=== PATIENT | male | born 1935 | race Two or more races ===

== ENCOUNTER 2017-01-22 21:16 | Inpatient (IN) | payer MEDICARE, OTHER ==
[~2017-01-22] VITALS: Ht 185.4 cm; Wt 129.3 kg
[2017-01-22] MEDS ORDERED: IV NORMAL SALINE 1000ML BAG 1,000 ML IV SCH (21:23)
[2017-01-22] MEDS ORDERED: 0.9 % SODIUM CHLORIDE 10 ML DISP.SYRIN. IV PRN (21:30)
[2017-01-22 21:38] LABS: BASO # 0.1 x10^3/uL (0.0-0.2); BASO % 1 % (0-3); EOS % 2 % (0-3); HEMATOCRIT 39.3 % (39.0-53.0); HEMOGLOBIN 13.2 g/dL (13.0-17.5); LYMPH # 1.6 x10^3/uL (1.0-4.8); LYMPH % 15 % (24-48); MEAN CORPUSCULAR HEMOGLOBIN 31 pg (25-35); MEAN CORPUSCULAR HGB CONC 34 g/dL (31-37); MEAN CORPUSCULAR VOLUME 92 fL (79-100); MONO % 8 % (0-9); NEUT % 75 % (31-73); PLATELET COUNT 154 x10^3/uL (140-400); RED CELL DISTRIBUTION WIDTH 14.5 % (11.5-14.5); WHITE BLOOD COUNT 10.8 x10^3/uL (4.0-11.0)
[2017-01-22] MEDS: fentaNYL PF VIAL 100 MCG/2 ML VIAL IV PRN ×2 (21:43→23:01)
--- NOTE | 2017-01-22 21:44 | PHYS DOC ---
Past Medical History Past Medical History: A-Fib, High Cholesterol, Hypertension Past Surgical History: Hip Replacement, Knee Replacement, Other Additional Past Surgical Histo: SHOULDER Smoking: Cigarettes, Less than 1pk/day Alcohol Use: None Drug Use: None Adult General Chief Complaint Chief Complaint: MECHANICAL FALL HPI HPI This is a pleasant 81-year-old male with history of hypertension, chronic atrial fibrillation with a pacemaker in place, and prior left hip replacement presents with a mechanical fall from standing. Patient was in his front yard on his driveway attempting to move a hose when he tripped walking backwards on the lawnmower. EMS was dispatched approximately noon today for evaluation of this patient who insisted that he was able to walk without issue. He emanated into the house remained on the couch all day. He only found this afternoon unable to walk concerning increasing pain in the right hip without radiation down the leg or the back asked EMS to reevaluate him and bring him to the ER. Pain is a 4-10 with rest and immobilization tendon a 10 with any kind of movement. He denies any numbness and tingling, he denies any focal neurologic weakness. Patient has had no bleeding denies any head injury, headache, focal neurologic deficit, or prior injury to this hip. She does pain described as throbbing with no radiation. He said no difficult to urinating denies hematuria nausea vomiting diarrhea and abdominal pain. He did take an oral Lortab prescribed by his primary care physician without improvement of his symptoms. Review of Systems Review of Systems Constitutional: Denies fever or chills [] Eyes: Denies change in visual acuity, redness, or eye pain [] HENT: Denies nasal congestion or sore throat [] Respiratory: Denies cough or shortness of breath [] Cardiovascular: No additional information not addressed in HPI [] GI: Denies abdominal pain, nausea, vomiting, bloody stools or diarrhea [] : Denies dysuria or hematuria [] Musculoskeletal: This patient complains of right hip pain Integument: Denies rash or skin lesions [] Neurologic: Denies headache, focal weakness or sensory changes [] Endocrine: Denies polyuria or polydipsia [] Current Medications Current Medications Current Medications Medications (Trade) Dose Ordered Sig/Elvi Start Time Stop Time Status Last Admin Dose Admin Fentanyl Citrate (Fentanyl 2ml Vial) 50 mcg PRN Q15MIN PRN 01/22/17 21:30 01/23/17 21:29 01/22/17 21:43 50 MCG Sodium Chloride (Normal Saline Flush) 10 ml QSHIFT PRN 01/22/17 21:30 Allergies Allergies Allergies Coded Allergies Type Severity Reaction Last Updated Verified No Known Drug Allergies 01/22/17 No Physical Exam Physical Exam Constitutional: Well developed, well nourished, no acute distress, non-toxic appearance. [] HENT: Normocephalic, atraumatic, bilateral external ears normal, oropharynx moist, no oral exudates, nose normal. [] Eyes: PERRLA, EOMI, conjunctiva normal, no discharge. [] Neck: Normal range of motion, no tenderness, supple, no stridor. [] Cardiovascular: Irregularly irregular rhythm Lungs & Thorax: Bilateral breath sounds clear to auscultation [] Abdomen: Bowel sounds normal, soft, no tenderness, no masses, no pulsatile masses. [] Skin: Warm, dry, no erythema, no rash. [] Back: No tenderness, no CVA tenderness. [] Extremities: Tenderness to palpation over the right lateral hip with no obvious signs of ecchymosis or deformity. Patient has decreased range of motion with significant pain with axial loading along the joint line. The knee ankle thigh and lower leg are without injury. Obvious signs of bleeding abrasions or laceration. Neurologic: Alert and oriented X 3, normal motor function, normal sensory function, no focal deficits noted. [Patient has normal sensation to light touch as well as pain in the lower extremity bilaterally. Psychologic: Affect normal, judgement normal, mood normal. [] Current Patient Data Vital Signs Vital Signs Date Time Temp Pulse Resp B/P (MAP) Pulse Ox O2 Delivery O2 Flow Rate FiO2 01/22/17 21:43 18 98 01/22/17 21:16 98.4 60 123/73 (90) Room Air 98.4 Lab Values Laboratory Tests Test 01/22/17 21:30 01/22/17 21:39 White Blood Count 10.8 x10^3/uL (4.0-11.0) Red Blood Count 4.30 x10^6/uL (4.30-5.70) Hemoglobin 13.2 g/dL (13.0-17.5) Hematocrit 39.3 % (39.0-53.0) Mean Corpuscular Volume 92 fL (79-100) Mean Corpuscular Hemoglobin 31 pg (25-35) Mean Corpuscular Hemoglobin Concent 34 g/dL (31-37) Red Cell Distribution Width 14.5 % (11.5-14.5) Platelet Count 154 x10^3/uL (140-400) Neutrophils (%) (Auto) 75 % (31-73) H Lymphocytes (%) (Auto) 15 % (24-48) L Monocytes (%) (Auto) 8 % (0-9) Eosinophils (%) (Auto) 2 % (0-3) Basophils (%) (Auto) 1 % (0-3) Neutrophils # (Auto) 8.1 x10^3uL (1.8-7.7) H Lymphocytes # (Auto) 1.6 x10^3/uL (1.0-4.8) Monocytes # (Auto) 0.8 x10^3/uL (0.0-1.1) Eosinophils # (Auto) 0.2 x10^3/uL (0.0-0.7) Basophils # (Auto) 0.1 x10^3/uL (0.0-0.2) Prothrombin Time 25.5 SEC (11.7-14.0) H Prothrombin Time INR 2.5 (0.8-1.1) H PTT 38 SEC (24-38) Sodium Level 142 mmol/L (136-145) Potassium Level 3.7 mmol/L (3.5-5.1) Chloride Level 102 mmol/L (98-107) Carbon Dioxide Level 33 mmol/L (21-32) H Anion Gap 7 (6-14) Blood Urea Nitrogen 35 mg/dL (8-26) H Creatinine 1.7 mg/dL (0.7-1.3) H Estimated GFR (Cockcroft-Gault) 38.9 BUN/Creatinine Ratio 21 (6-20) H Glucose Level 116 mg/dL (70-99) H Calcium Level 8.5 mg/dL (8.5-10.1) Total Bilirubin 0.4 mg/dL (0.2-1.0) Aspartate Amino Transferase (AST) 17 U/L (15-37) Alanine Aminotransferase (ALT) 29 U/L (16-63) Alkaline Phosphatase 80 U/L (46-116) Total Protein 7.1 g/dL (6.4-8.2) Albumin 3.2 g/dL (3.4-5.0) L Albumin/Globulin Ratio 0.8 (1.0-1.7) L POC Troponin I 0.04 ng/ml (<0.08) Laboratory Tests 01/22/17 21:30 Laboratory Tests 01/22/17 21:30 EKG EKG [] Patient is pleasant 81-year-old male EKG timed 212301/22/2017 demonstrates paced rhythm with atrial fibrillation QRS is wide based on past rhythm regular and capturing Radiology/Procedures Radiology/Procedures IMAGING REPORT Signed PATIENT: RENATA WALTERS ACCOUNT: [id number] : 1935 LOCATION: ER AGE: 81 SEX: M EXAM STATUS: REG ER ORD. PHYSICIAN: CARMELO WATSON MD REASON: fall from standing on coumadin PROCEDURE: CT HEAD WO CONTRAST PROCEDURE CT head without contrast. HISTORY Fall, on Coumadin TECHNIQUE Noncontrast CT imaging was performed of the head. Exposure: One or more of the following individualized dose reduction techniques were utilized for this exam: 1. Automated exposure control. 2. Adjustment of the mA and/or kV according to patient size. 3. Use of iterative reconstruction technique. COMPARISON None FINDINGS There is mild generalized supratentorial atrophy. No acute intracranial hemorrhage is identified. There is no intra-axial mass effect or midline shift. Key-white differentiation of the major vascular territories is maintained. No acute calvarial abnormality is identified. Visualized paranasal sinuses are mostly aerated, minimal ethmoid air cell mucosal thickening. Mastoid air cells are aerated. IMPRESSION 1. No acute intracranial hemorrhage is identified. 2. There is mild generalized supratentorial atrophy. Electronically signed by: Trevin Gallego MD (January 22, 2017 22:08:44) DICTATED and SIGNED BY: RADHA GALLEGO MD DATE: 01/22/172207 CC: CARMELO WATSON MD; IGOR WINCHESTER MD ~ [] Course & Med Decision Making Course & Med Decision Making Pertinent Labs and Imaging studies reviewed. (See chart for details) Patient's hip x-ray time 2151 date 01/22/2017 demonstrates prosthetic hip noted on the right with no occult fractures. Pelvic was at an normal limits. Pubic rami intact no evidence of the distal femur is noted on the x-rays.] Patient's CT of his head is unremarkable as noted in the above note. CT results were reviewed by me as well as laboratory work, INR was 2.5 patient is mildly dehydrated with elevated creatinine of and as well as a increased hyperglycemia. Patient unable to walk secondary to pain although there is no obvious signs of trauma or hematoma in the soft tissues that may be contributing to her symptoms. Spoke at length with patient need for possible CT of his lumbar spine to ensure that no occult fractures noted. Patient be admitted to the hospital to his primary care physician Dr. Igor Winchester for pain control given repeated needs for multiple doses of narcotics. His hematocrit was stable come: Okay with this plan as well as internal medicine physician Impression: Intractable hip pain, contusion and hematoma Disposition: The hospital for 24-48 hour evaluation pain control and disposition. Dragon Disclaimer Dragon Disclaimer This electronic medical record was generated, in whole or in part, using a voice recognition dictation system. Departure Departure Impression: Primary Impression: Hip abrasion Additional Impressions: Contusion of hip Intractable pain Disposition: ADMITTED INPATIENT Admitting Physician: Igor Winchester Condition: GUARDED Problem Qualifiers CARMELO WATSON MD January 22, 2017 21:44
[2017-01-22 21:47] LABS: CALCIUM 8.5 mg/dL (8.5-10.1); CREATININE 1.7 mg/dL (0.7-1.3); GFR 38.9; POTASSIUM 3.7 mmol/L (3.5-5.1)
[2017-01-22 21:49] LABS: INR 2.5 (0.8-1.1); PROTHROMBIN TIME PATIENT 25.5 SEC (11.7-14.0)
[2017-01-22 21:53] LABS: ALBUMIN 3.2 g/dL (3.4-5.0); ALBUMIN/GLOBULIN RATIO 0.8 (1.0-1.7); TOTAL BILIRUBIN 0.4 mg/dL (0.2-1.0); TOTAL PROTEIN 7.1 g/dL (6.4-8.2)
--- NOTE | 2017-01-22 22:10 | RAD ---
PROCEDURE CT head without contrast. HISTORY Fall, on Coumadin TECHNIQUE Noncontrast CT imaging was performed of the head. Exposure: One or more of the following individualized dose reduction techniques were utilized for this exam: 1. Automated exposure control. 2. Adjustment of the mA and/or kV according to patient size. 3. Use of iterative reconstruction technique. COMPARISON None FINDINGS There is mild generalized supratentorial atrophy. No acute intracranial hemorrhage is identified. There is no intra-axial mass effect or midline shift. Key-white differentiation of the major vascular territories is maintained. No acute calvarial abnormality is identified. Visualized paranasal sinuses are mostly aerated, minimal ethmoid air cell mucosal thickening. Mastoid air cells are aerated. IMPRESSION 1. No acute intracranial hemorrhage is identified. 2. There is mild generalized supratentorial atrophy. Electronically signed by: Trevin Kevin MD (January 22, 2017 22:08:44)
[2017-01-22 22:26] LABS: BILIRUBIN,URINE NEGATIVE (NEG); GLUCOSE,URINE NEGATIVE (NEG); NITRITE,URINE NEGATIVE (NEG); PH,URINE 5.5; PROTEIN,URINE NEGATIVE (NEG-TRACE); UROBILINOGEN,URINE 0.2 mg/dL (0.2 mg/dL)
[2017-01-22 22:32] LABS: BACTERIA,URINE FEW /HPF (0-FEW); SQUAMOUS EPITHELIAL CELL,UR FEW /LPF
[2017-01-22] MEDS ORDERED: ACETAMINOPHEN 325 MG TABLET. PO PRN (22:45)
[2017-01-22] MEDS ORDERED: ONDANSETRON PF 4 MG/2 ML VIAL. IV PRN (22:45)
--- NOTE | 2017-01-22 23:02 | RAD ---
PROCEDURE CT lumbar spine without contrast. HISTORY Fall, low back pain TECHNIQUE Noncontrast CT imaging was performed of the lumbar spine. Exposure: One or more of the following individualized dose reduction techniques were utilized for this exam: 1. Automated exposure control. 2. Adjustment of the mA and/or kV according to patient size. 3. Use of iterative reconstruction technique. COMPARISON None FINDINGS Lumbar vertebral body stature is overall adequate. There is pseudoarticulation on the right at L5 and S1. No lumbar spine fracture is identified. There is multilevel moderate to severe degenerative disc disease other than mild degenerative disc disease at L5-S1. There is multilevel lumbar facet degenerative change. There is likely overall moderate spinal stenosis at L2-3, other lateral recess stenosis L1-L2, and minimally at L3-4 and likely at least mild left greater than right lateral recess stenosis at L4-5. There is multilevel lumbar neural foramina compromise including more significant narrowing bilaterally at L4-5 and on the right at L1-2, to lesser degree at other levels other than relative sparing L5-S1. There is mild lumbar levoscoliosis. IMPRESSION 1. No acute lumbar spine fracture is identified. 2. There is multilevel lumbar degenerative disc disease and spondylosis as well as facet degenerative change, multilevel variable lateral recess stenosis and neural foramina compromise. Electronically signed by: Trevin Kevin MD (January 22, 2017 23:00:36)
[2017-01-23] VITALS (7 sets, daily range): BP systolic 92–120; BP diastolic 52–74
--- NOTE | 2017-01-23 | ACF ---
Admission Forms Criteria PAIN MANAGEMENT GRG Clinical Indications for Admission to Inpatient Care (Place 'X' for any and all applicable criteria): Hospital admission is needed for appropriate care of the patient because of 1 or more of the following are present (1)(2)(3)(4)(5): [X ]I. Severe pain requiring acute inpatient management as indicated by 1 or more of the following (2)(5)(10): [X ]a) Continuous or frequent (eg, every 2 to 4 hours) parenteral analgesics required [A] [ ]b) Necessity (ie, alternative approaches not effective) for analgesic regimen that can only be performed or initiated in inpatient setting [X ]II. Pain causing debilitation to the point of inability to function or be supported at any other level of care [ ]III. Severe side effects from pain medications as indicated by ANY ONE of the following (12)(13)(14)(15): [ ]a) Uncontrollable seizures [ ]b) Cardiac arrhythmias of immediate concern [ ]c) Dehydration that is severe or persistent [ ]d) Vomiting that is severe or persistent [ ]e) Altered mental status that is severe or persistent [ ]f) Obstipation with inadequate GI function to maintain nutrition The original [employer] content created by [employer] has been revised. The portions of the content which have been revised are identified through the use of italic text or in bold, and [facility] has neither reviewed nor approved the modified material. All other unmodified content is copyright [employer]. Please see references footnoted in the original [employer] edition 2016 Admission Criteria Met?: Yes EROS HDZ January 23, 2017 00:00
[2017-01-23] MEDS: fentaNYL PF VIAL 100 MCG/2 ML VIAL IV PRN ×3 (01:11→08:26)
[2017-01-23] MEDS ORDERED: TAMS0.4C2 PO (02:23)
[2017-01-23] MEDS ORDERED: WARF2TAB7 PO (02:23)
[2017-01-23] MEDS ORDERED: METO100T11 PO (02:23)
[2017-01-23] MEDS ORDERED: HYDR-2672 PO (02:23)
[2017-01-23] MEDS ORDERED: FURO20TA3 PO (02:23)
[2017-01-23] MEDS ORDERED: POTA20TA82 PO (02:23)
--- NOTE | 2017-01-23 06:21 | EKG ---
[facility] [address] [place] [address] Test Date: 2017-01-22 Test Time: 21:24:08 Pat Name: RENATA MALONE Department: Room: Gender: M Sr. Director: : 1935 Requested By: CARMELO WATSON Order Number: [id number] Reading MD: Measurements Intervals Duff Rate: 60 P: HI: QRS: 127 QRSD: 38 T: -86 QT: 470 QTc: 475 Interpretive Statements ATRIAL FIBRILLATION INDETERMINATE AXIS R-S TRANSITION ZONE IN V LEADS DISPLACED TO THE LEFT LOW LIMB LEAD VOLTAGE QRS(T) CONTOUR ABNORMALITY CONSIDER ANTEROSEPTAL MYOCARDIAL DAMAGE CONSIDER INFERIOR INFARCT ST & T ABNORMALITY, CONSIDER ANTERIOR ISCHEMIA OR LEFT VENTRICULAR STRAIN T ABNORMALITY IN LATERAL LEADS RI6.01 Unconfirmed report No previous ECG available for comparison
--- NOTE | 2017-01-23 07:44 | RAD ---
Pelvis with right hip, 01/22/2017: History: Fall A right total hip prosthesis is in place in satisfactory position. No fracture or dislocation is evident. Degenerative changes are noted in the lower lumbar spine. There is a moderate amount stool in the colon. IMPRESSION: 1. A right total hip prosthesis is in place in satisfactory position. 2. No acute bony abnormality is detected.
--- NOTE | 2017-01-23 07:46 | RAD ---
AP chest, 01/22/2017: History: Fall, anterior chest wall pain A left-sided transvenous pacemaker is in place with 3 leads extending into the heart. The heart is mildly enlarged. The pulmonary vascularity is normal. The depth of inspiration is suboptimal. No pulmonary infiltrate is seen. There is no evidence of pleural fluid or pneumothorax. Degenerative changes are evident in the spine and at the right shoulder. A left shoulder prosthesis is in place. IMPRESSION: 1. Mild cardiomegaly. 2. No acute abnormality is detected.
[2017-01-23] MEDS ORDERED: HYDROcodone/APAP 10/325 1 TAB TABLET PO PRN (09:00)
[2017-01-23] MEDS: METOPROLOL SUCC 24HR ER 100 MG TAB.ER.24H. PO SCH (09:00)
[2017-01-23] MEDS: FUROSEMIDE 20 MG TABLET PO SCH (09:00)
--- NOTE | 2017-01-23 09:09 | PDOC ---
Provider Note Provider Note [id number] IGOR QUIROZ MD January 23, 2017 09:09
[2017-01-23] MEDS: TAMSULOSIN 0.4 MG CAP.ER.24H. PO SCH (10:17)
--- NOTE | 2017-01-23 11:45 | HP ---
ADMIT DATE: CHIEF COMPLAINT: Fall. HISTORY OF PRESENT ILLNESS: An 81-year-old white male with history of atrial fibrillation and chronic ____ watering belle, dripped over the horse and fell on his right side and buttock. He was unable to walk over the last next several hours and came into the ER. CT scan of the head, hip x-ray, lumbar spine CT and chest x-ray were all clear and no bony injuries are seen and labs were normal. He is still having a fair amount of right posterior gluteal pain at this point. PAST MEDICAL HISTORY: Anticoagulated ____ [facility] for his atrial fibrillation. MEDICATIONS: He takes other meds are listed per his moderate cardiomyopathy, right hip replacement was in place. ALLERGIES: No allergies are known. SOCIAL HISTORY: He is , lives with family. Nonsmoker, nondrinker. FAMILY HISTORY: Unremarkable. REVIEW OF SYSTEMS: Unremarkable. OBJECTIVE: ENT: All within normal limits. NECK: No masses, nodes or bruits. LUNGS: Clear. CARDIOVASCULAR: Regular rate. No irregular beat or murmur. ABDOMEN: Soft, obese, benign, and nontender. BACK: Nontender. EXTREMITIES: He is tender in the right gluteal and lateral hip area. No bruising, redness or skin breakdown were seen, good pedal and radial pulses bilaterally. NEUROLOGIC: Physiologic, he is able to sit up slowly unable to stand slowly. No focal deficits are noted. Mental status is intact. LABORATORY STUDIES: Showed an INR of 2.5, otherwise unremarkable. ASSESSMENT: Fall and right hip and buttock pain; some soft tissue injury. PLAN: PT and Pharmacy Service Associate, continue same medications. IGOR QUIROZ MD DR: ROULA/emma JOB#: [id number] / [id number]
[2017-01-23] MEDS: HYDROcodone/APAP 10/325 1 TAB TABLET PO PRN ×2 (12:44→20:11)
[2017-01-23] MEDS ORDERED: WARFARIN 2 MG TABLET. PO SCH (16:00)
[2017-01-23] MEDS ORDERED: fentaNYL PF VIAL 100 MCG/2 ML VIAL IV PRN (21:45)
[2017-01-23] MEDS: POLYETHYLENE GLYCOL 3350 17 GM PACKET. PO SCH (21:48)
[2017-01-24] MEDS: HYDROcodone/APAP 10/325 1 TAB TABLET PO PRN ×5 (01:36→21:26)
[2017-01-24 03:25] VITALS: BP 109/65
[2017-01-24 07:00] VITALS: BP 119/65
[2017-01-24] MEDS: POLYETHYLENE GLYCOL 3350 17 GM PACKET. PO SCH (08:56)
[2017-01-24] MEDS: TAMSULOSIN 0.4 MG CAP.ER.24H. PO SCH (08:56)
[2017-01-24] MEDS: FUROSEMIDE 20 MG TABLET PO SCH (08:56)
[2017-01-24] MEDS: METOPROLOL SUCC 24HR ER 100 MG TAB.ER.24H. PO SCH (08:58)
[2017-01-24 11:00] VITALS: BP 96/58
--- NOTE | 2017-01-24 12:41 | PDOC ---
SUBJECTIVE Subjective pain R hip , large bruise and small hematoma noted will hold coumadin , apply Ice for hemostasis discussed with pt OBJECTIVE Vital Signs Vital Signs Date Time Temp Pulse Resp B/P (MAP) Pulse Ox O2 Delivery O2 Flow Rate FiO2 01/24/17 11:56 Room Air 01/24/17 11:00 98.0 60 16 96/58 (71) 97 Room Air 98.0 01/24/17 08:58 60 119/65 01/24/17 07:40 Room Air 01/24/17 07:35 Room Air 01/24/17 07:00 98.1 60 16 119/65 (83) 94 Room Air 98.1 01/24/17 06:16 18 Room Air 01/24/17 03:25 97.9 60 20 109/65 (80) 96 Room Air 97.9 01/24/17 02:51 18 01/23/17 23:27 98.2 60 20 120/74 (89) 95 Room Air 98.2 01/23/17 22:45 18 01/23/17 20:11 Room Air 01/23/17 20:00 Room Air 01/23/17 19:05 97.7 60 20 115/64 (81) 98 Room Air 97.7 01/23/17 15:02 97.5 60 18 92/52 (65) 94 Room Air 97.5 01/23/17 12:44 Room Air I & O Intake and Output 01/24/17 07:00 Intake Total 1480 ml Output Total 925 ml Balance 555 ml Intake Oral 1480 ml Output Urine Total 925 ml # Voids 1 PHYSICAL EXAM Physical Exam lungs clear heart IRREG abd soft obese none tender ext trace edema, R hip area with large bruise and small hematoma ASSESSMENT/PLAN Assessment/Plan 1- hematoma right hip due to fall 2- low Bp today will decrease metoprolol recheck Hb R/O drop in Hb due to hematoma, monitor closely 3-A fib on chronic anti coagulation will hold coumadin due to hematoma continue PT, await SNU Problems: BRIAN BLAIR MD January 24, 2017 12:41
[2017-01-24] MEDS: POTASSIUM CL 20MEQ D5-0.45NACL 1,000 ML IV SCH ×2 (13:25→21:27)
[2017-01-24 15:00] VITALS: BP 134/66
[2017-01-24 19:39] VITALS: BP 125/63
[2017-01-24 23:05] VITALS: BP 105/60
[2017-01-25 03:20] VITALS: BP 122/70
[2017-01-25 04:06] LABS: HEMATOCRIT 30.4 % (39.0-53.0); HEMOGLOBIN 10.6 g/dL (13.0-17.5); RED BLOOD COUNT 3.39 x10^6/uL (4.30-5.70); RED CELL DISTRIBUTION WIDTH 14.5 % (11.5-14.5); WHITE BLOOD COUNT 8.7 x10^3/uL (4.0-11.0)
[2017-01-25 04:21] LABS: CALCIUM 8.1 mg/dL (8.5-10.1); CREATININE 1.1 mg/dL (0.7-1.3); GFR 64.2; POTASSIUM 4.2 mmol/L (3.5-5.1)
[2017-01-25] MEDS: HYDROcodone/APAP 10/325 1 TAB TABLET PO PRN ×4 (04:21→20:09)
[2017-01-25 07:00] VITALS: BP 100/49
[2017-01-25] MEDS: POLYETHYLENE GLYCOL 3350 17 GM PACKET. PO SCH (08:18)
[2017-01-25] MEDS: TAMSULOSIN 0.4 MG CAP.ER.24H. PO SCH (08:18)
[2017-01-25] MEDS: METOPROLOL SUCC 24HR ER 50 MG TAB.ER.24H. PO SCH (08:19)
[2017-01-25 11:00] VITALS: BP 101/59
--- NOTE | 2017-01-25 12:15 | PDOC ---
SUBJECTIVE Subjective pain Right hip better, still large bruise, hematoma stable OBJECTIVE Vital Signs Vital Signs Date Time Temp Pulse Resp B/P (MAP) Pulse Ox O2 Delivery O2 Flow Rate FiO2 01/25/17 11:00 97.5 60 18 101/59 (73) 96 Room Air 97.5 01/25/17 09:20 Room Air 01/25/17 08:30 Room Air 01/25/17 08:20 Room Air 01/25/17 08:19 63 122/70 01/25/17 07:00 97.8 60 18 100/49 (66) 97 Room Air 97.8 01/25/17 05:21 20 96 01/25/17 04:21 20 96 Room Air 01/25/17 03:20 97.7 59 18 122/70 (87) 96 Room Air 97.7 01/24/17 23:05 97.9 90 18 105/60 (75) 99 Room Air 97.9 01/24/17 21:26 20 96 Room Air 01/24/17 20:24 Room Air 01/24/17 19:39 97.7 56 18 125/63 (83) 96 Room Air 97.7 01/24/17 18:11 Room Air 01/24/17 15:00 97.4 60 16 134/66 (88) 97 Room Air 97.4 I & O Intake and Output 01/25/17 07:00 Intake Total 643 ml Output Total 1895 ml Balance -1252 ml Intake Oral 120 ml IV Total 523 ml Output Urine Total 1895 ml # Voids 4 PHYSICAL EXAM Physical Exam bruise extending lower thigh , hematoma stable otherwise no change ASSESSMENT/PLAN Assessment/Plan 1- hematoma right hip due to fall stable , coumadin held yest and today due to developing hematoma and large bruise 2- low Bp decreased metoprolol yesterday , 3- anemia , monitor Hb seems blood loss due to hematoma , should stablize 4-A fib on chronic anti coagulation held coumadin due to hematoma yest and today continue PT, await SNU Problems: COMMENT Lab Laboratory Tests Test 01/25/17 03:32 White Blood Count 8.7 x10^3/uL (4.0-11.0) Red Blood Count 3.39 x10^6/uL (4.30-5.70) Hemoglobin 10.6 g/dL (13.0-17.5) Hematocrit 30.4 % (39.0-53.0) Mean Corpuscular Volume 90 fL (79-100) Mean Corpuscular Hemoglobin 31 pg (25-35) Mean Corpuscular Hemoglobin Concent 35 g/dL (31-37) Red Cell Distribution Width 14.5 % (11.5-14.5) Platelet Count 131 x10^3/uL (140-400) Sodium Level 138 mmol/L (136-145) Potassium Level 4.2 mmol/L (3.5-5.1) Chloride Level 103 mmol/L (98-107) Carbon Dioxide Level 32 mmol/L (21-32) Anion Gap 3 (6-14) Blood Urea Nitrogen 23 mg/dL (8-26) Creatinine 1.1 mg/dL (0.7-1.3) Estimated GFR (Cockcroft-Gault) 64.2 Glucose Level 121 mg/dL (70-99) Calcium Level 8.1 mg/dL (8.5-10.1) BRIAN BLAIR MD January 25, 2017 12:15
[2017-01-25] MEDS: POTASSIUM CL 20MEQ D5-0.45NACL 1,000 ML IV SCH ×2 (14:29→20:09)
[2017-01-25 15:00] VITALS: BP 106/66
[2017-01-25 19:30] VITALS: BP 109/62
[2017-01-25 23:07] VITALS: BP 112/60
[2017-01-26 03:14] VITALS: BP 120/68
[2017-01-26 05:07] LABS: HEMATOCRIT 30.2 % (39.0-53.0); RED BLOOD COUNT 3.25 x10^6/uL (4.30-5.70); RED CELL DISTRIBUTION WIDTH 14.4 % (11.5-14.5); WHITE BLOOD COUNT 7.6 x10^3/uL (4.0-11.0)
[2017-01-26 05:10] LABS: INR 1.7 (0.8-1.1); PROTHROMBIN TIME PATIENT 19.3 SEC (11.7-14.0)
[2017-01-26] MEDS: HYDROcodone/APAP 10/325 1 TAB TABLET PO PRN ×3 (05:22→13:45)
[2017-01-26 05:39] LABS: CREATININE 0.9 mg/dL (0.7-1.3); POTASSIUM 4.7 mmol/L (3.5-5.1)
[2017-01-26 07:00] VITALS: BP 124/72
--- NOTE | 2017-01-26 08:29 | PDOC ---
Provider Note Provider Note R hip hematoma stable, vss, still nsr- stay off warf for now, low risk state- dc to rehab when available IGOR QUIROZ MD January 26, 2017 08:29
--- NOTE | 2017-01-26 08:32 | DISCH ---
DISCHARGE FINAL DIAGNOSIS Problems Medical Problems: (1) Contusion of hip Status: Acute (2) Hip abrasion Status: Acute (3) Intractable pain Status: Acute CONDITION ON DISCHARGE: Stable SNF STAY <30 DAYS: Yes POST DISCHARGE ORDERS ACTIVITY ORDERS: No restrictions DIET AFTER DISCHARGE: Cardiac FOLLOW-UP PHYSICIAN FOLLOW-UP: IGOR Ritchie MD January 26, 2017 08:31
[2017-01-26] MEDS: TAMSULOSIN 0.4 MG CAP.ER.24H. PO SCH (09:23)
[2017-01-26] MEDS: POLYETHYLENE GLYCOL 3350 17 GM PACKET. PO SCH (09:23)
[2017-01-26] MEDS: METOPROLOL SUCC 24HR ER 50 MG TAB.ER.24H. PO SCH (09:23)
[2017-01-26 11:00] VITALS: BP 115/59
== END 2017-01-26 13:55 | DRG 605 ==
LOC: ER 21:16 → 4 NORTH 22:30
PROVIDERS: ADMIT Family Medicine; ATTEND Family Medicine
DX: S70.01XA Contusion of right hip, initial encounter (principal); D62 Acute posthemorrhagic anemia; F17.210 Nicotine dependence, cigarettes, uncomplicated; W19.XXXA Unspecified fall, initial encounter; R26.2 Difficulty in walking, not elsewhere classified; Z96.659 Presence of unspecified artificial knee joint; Z96.649 Presence of unspecified artificial hip joint; I48.2 Chronic atrial fibrillation; E78.00 Pure hypercholesterolemia, unspecified; E66.9 Obesity, unspecified; Z79.01 Long term (current) use of anticoagulants; Y93.89 Activity, other specified; Y92.89 Other specified places as the place of occurrence of the external cause; Y99.2 Volunteer activity; Z95.0 Presence of cardiac pacemaker; Z68.37 Body mass index [BMI] 37.0-37.9, adult; I12.9 Hypertensive chronic kidney disease with stage 1 through stage 4 chronic kidney disease, or unspecified chronic kidney disease; N18.2 Chronic kidney disease, stage 2 (mild)
CPT/HCPCS: 36415; 70450; 71010; 72131; 73502; 80048; 80053; 81001; 84484; 85027; 85610; 85730; 93005; J3010; J7030; 97116; 97530; 99285-25